=== PATIENT | male | born 1995 | race Hispanic/Latino ===

== ENCOUNTER 2018-03-15 13:18 | Emergency (ER) | payer BC ==
[2018-03-15 16:29] VITALS: BP 136/83
[2018-03-15 22:36] LABS: CLARITY,URINE CLEAR (CLEAR); COLOR,URINE YELLOW (YELLOW); KETONES,URINE NEGATIVE (NEGATIVE); LEUKOCYTE ESTERASE ,URINE NEGATIVE (NEGATIVE); NITRITE,URINE NEGATIVE (NEGATIVE); PROTEIN,URINE DIPSTICK NEGATIVE (NEGATIVE); URINE UROBILINOGEN 0.2 mg/dL (0.2 - 1)
[2018-03-15 22:37] LABS: BACTERIA,URINE FEW /HPF; BILIRUBIN,URINE NEGATIVE (NEGATIVE); EPITHELIAL CELLS,URINE MODERATE /LPF; MUCUS,URINE FEW (RARE); RBC,URINE 0-5 /HPF (0-5)
--- NOTE | 2018-03-16 10:54 | Diagnostic Imaging Report ---
EXAM: CT ABDOMEN/PELVIS WO DATE: 03/15/2018 2:07 PM INDICATION: Flank pain COMPARISON: None. TECHNIQUE: Abdomen and Pelvis was scanned utilizing a multidetector helical scanner without the use of IV contrast. Coronal and sagittal reformations were obtained. IV CONTRAST: None COMPLICATIONS: None RADIATION DOSE: Total DLP: 708 mGy*cm Estimated effective dose: (DLP x 0.015 x size factor) mSv CTDIvol has been reviewed. It is below the limits set by the Radiation Protocol Committee (RPC). FINDINGS: Abdomen: Lung Bases: No acute findings. Solid Organs: Nonenhanced images of the liver, adrenals, spleen, pancreas, are unremarkable. There is a 3 mm proximal right ureteral calculus with mild right hydronephrosis. Left kidney unremarkable. Upper GI Tract: Stomach is distended with ingested material. No small bowel obstructive changes. Vascularity: No aortic aneurysm. Lymph Nodes: No suspicious adenopathy. Other: None. Pelvis: Bladder: Unremarkable. Other: None. Colon: No acute colonic findings. Bones: No acute findings. IMPRESSION: 1. 3 mm proximal right ureteral calculus with mild right hydronephrosis. Preliminary results faxed [id number]. Signed by: Dr. Roman Macdonald MD on 03/16/2018 10:51 AM
== END 2018-03-15 17:18 | disposition home or self-care (01) ==
LOC: ER 15:20
DX: R10.9 Unspecified abdominal pain (principal); R11.0 Nausea; N20.1 Calculus of ureter
CPT/HCPCS: 74176; 81001; 99283